=== PATIENT | female | born 1990 | race Caucasian/White ===

== ENCOUNTER 2017-01-11 20:34 | Emergency (ER) | payer BC ==
[2017-01-11 20:41] VITALS: BP 135/86
[2017-01-11 21:51] LABS: AMORPHOUS SEDIMENT,URINE TRACE /HPF; APPEARANCE,URINE SLIGHTLY-CLOUDY; BILIRUBIN,URINE NEGATIVE (NEGATIVE); GLUCOSE, URINE NEGATIVE (NEGATIVE); KETONES,URINE NEGATIVE (NEGATIVE); LEUKOCYTE ESTERASE,URINE TRACE (NEGATIVE); NITRITE,URINE NEGATIVE (NEGATIVE); PROTEIN,URINE NEGATIVE (NEGATIVE); URINE SPECIFIC GRAVITY 1.018; UROBILINOGEN,URINE NEGATIVE mg/dL (<2.0)
[2017-01-11] MEDS ORDERED: CEPHALEXIN 500 MG CAPSULE PO ONE (22:22)
[2017-01-11] MEDS ORDERED: ACETAMINOPHEN 325 MG TABLET PO ONE (22:22)
--- NOTE | 2017-01-11 22:24 | ER Document Report ---
ED Flu Like - General Chief Complaint: Flu Symptoms Stated Complaint: POSSIBLE FLU SYMPTOMS Time Seen by Provider: 01/11/17 20:55 Notes: Patient is a 6 week 26-year-old female who presents emergency department complaining of flulike symptoms that have been for the past 72 hours. She admits to runny nose, congestion and mild body aches. She has been tolerating p.o. without any difficulty. She states she felt like she had a fever at home but no evidence of that here on her initial vitals. Has had TVUS at her [facility] office with confirmation of IUP with heart rate. States her corpus luteum was thin so she was started on progesterone TRAVEL OUTSIDE OF THE [place] IN LAST 30 DAYS: No - Related Data Allergies/Adverse Reactions: No Known Allergies Allergy (Unverified 01/11/17 20:39) Past Medical History - Social History Smoking Status: Never Smoker Chew tobacco use (# tins/day): No Frequency of alcohol use: None Drug Abuse: None Family History: Reviewed & Not Pertinent Renal/ Medical History: Denies: Hx Peritoneal Dialysis Past Surgical History: Reports: Hx Oral Surgery Review of Systems - Review of Systems Constitutional: See HPI EENT: See HPI Cardiovascular: No symptoms reported Respiratory: No symptoms reported Gastrointestinal: See HPI -: Yes All other systems reviewed and negative Physical Exam - Vital signs Vitals: Temp Pulse Resp BP Pulse Ox 98.5 F 99 17 135/86 H 98 01/11/17 20:39 01/11/17 20:39 01/11/17 20:39 01/11/17 20:39 01/11/17 20:39 - Notes Notes: PHYSICAL EXAM GENERAL: Alert, interacts well. HEAD: Normocephalic, atraumatic. EYES: Pupils equal, round, and reactive to light. Extraocular movements intact. ENT: Oral mucosa moist, tongue midline. NECK: Full range of motion. Supple. Trachea midline. LUNGS: Clear to auscultation bilaterally, no wheezes, rales, or rhonchi. No respiratory distress. HEART: Regular rate and rhythm. No murmurs, gallops, or rubs. ABDOMEN: Soft, nondistended, nontender. No guarding, rebound, or rigidity.. Bowel sounds present in all 4 quadrants. EXTREMITIES: Moves all 4 extremities spontaneously. No edema, radial and dorsalis pedis pulses 2/4 bilaterally. No cyanosis. NEUROLOGICAL: Alert and oriented x4. Normal speech. PSYCH: Normal affect, normal mood. SKIN: Warm, dry, normal turgor. No rashes or lesions noted. Course - Re-evaluation Re-evalutation: 01/11/17 21:15 Patient is a 26-year-old female is hemodynamically stable, no acute distress afebrile. Rapid strep is negative. Urinalysis with evidence of back. Her urine. Will treat given that she is . Patient tolerating p.o. without any difficulty and vital signs remained stable in the department. Patient stable for discharge home - Vital Signs Vital signs: Temp Pulse Resp BP Pulse Ox 98.5 F 99 17 135/86 H 98 01/11/17 20:39 01/11/17 20:39 01/11/17 20:39 01/11/17 20:39 01/11/17 20:39 - Laboratory Laboratory results interpreted by me: 01/11/17 21:18 Ur Leukocyte Esterase TRACE H Discharge - Discharge Clinical Impression: Flu-like symptoms Condition: Good Disposition: HOME, SELF-CARE Instructions: Acetaminophen, Viral Syndrome ([facility]) Additional Instructions: There was bacteria in your urine, given that you are we will treat even though you are not experiencing any symptoms. Please follow up with your primary care regarding todays visit Prescriptions: Cephalexin Monohydrate [Keflex 500 mg Capsule] 500 mg PO BID 7 Days capsule Forms: Return to Work
== END 2017-01-11 22:33 | disposition home or self-care (01) ==
LOC: ER 20:34
DX: R09.89 Other specified symptoms and signs involving the circulatory and respiratory systems (principal); R09.81 Nasal congestion; M79.1 Myalgia
CPT/HCPCS: 81001; 87070; 87086; 87880; 99283